=== PATIENT | female | born 1970 | race Caucasian/White ===

== ENCOUNTER 2018-01-01 16:52 | Emergency (ER) | payer OTHER ==
[~2018-01-01 16:52] MED LIST: DOC100 PO; LORA10TA2 PO; PAN40 PO; PER PO
[2018-01-01] MEDS ORDERED: LEVO-3 PO (16:58)
--- NOTE | 2018-01-01 17:29 | ER Report ---
History and Physical Time Seen By MD: 17:26 Hx. of Stated Complaint: R ELBOW PAIN AFTER FALL 1 WEEK AGO HPI/ROS CHIEF COMPLAINT: Right elbow pain HISTORY OF PRESENT ILLNESS: This is a 39-year-old female presents to the emergency department for right elbow pain. Patient states that about one week ago she fell backwards landing on her right elbow, since then she's had increased pain. Over the last 2-3 days she's had increased swelling to the right arm with pain down the forearm and decreased violent crimes detective strength. No numbness or tingling. CMS intact distal to the injury. Painful with any movement and light touch. No obvious deformities. All fevers or chest pain. REVIEW OF SYSTEMS: Respiratory: No cough, no dyspnea. Cardiovascular: No chest pain, no palpitations. Gastrointestinal: No vomiting, no abdominal pain. Musculoskeletal: As above. Allergies: Coded Allergies: diphenhydramine HCl (Verified Allergy, Severe, COMA LIKE STATE AFTER 5 MINUTES, 01/01/18) Penicillins (Verified Allergy, Intermediate, HIVES,SWELLING, 01/01/18) erythromycin base (Verified Allergy, Intermediate, SWELLING, HIVES, RASH AND ITCHING, 01/01/18) Home Meds Reported Medications Levothyroxine Sodium (LEVOTHYROXINE SODIUM) 100 Mcg Tablet, 100 MCG PO QDAY, TAB 01/01/18 Discontinued Reported Medications Docusate Sodium (Colace 100 Mg) 100 Mg Cap, 100 MG PO BID, #30 06/23/12 Oxycodone/Acetaminophen (OXYCODONE/ACETAMINOPHEN 5MG/325 MG) 5 Mg/325 Mg Tab, 1 - 2 TAB PO Q4H, #30 as needed for pain 06/23/12 Loratadine (Loratadine) 10 Mg Tablet, 10 MG PO TAKES NEEDED FOR ALLERGY SYMPTOMS 06/20/12 Oxycodone/Acetaminophen (OXYCODONE/ACETAMINOPHEN 5MG/325 MG) 5 Mg/325 Mg Tab, 1 - 2 TAB PO Q4H 06/20/12 Pantoprazole Sod (Protonix) 40 Mg Tabec, 40 MG PO QDAY 06/20/12 Past Medical/Surgical History Patient has a past medical and surgical history of GERD, arthritis, wears reading glasses, hypothyroid, cholecystectomy. Reviewed Nurses Notes: Yes Constitutional Vital Sign - Last 24 Hours 01/01/18 01/01/18 01/01/18 16:52 16:54 19:09 Temp 98.4 Pulse 96 78 Resp 18 17 B/P (MAP) 117/89 117/89 (98) 120/78 (92) Pulse Ox 94 97 O2 Delivery Room Air Room Air Physical Exam General Appearance: The patient is alert, has no immediate need for airway protection and no current signs of toxicity. Eyes: Pupils equal and round no injection. Respiratory: Chest is non tender, lungs are clear to auscultation. Cardiac: regular rate and rhythm. Gastrointestinal: Abdomen is soft and non tender, no masses, bowel sounds normal. Musculoskeletal: Neck: Neck is supple and non tender. Extremities painful supination and pronation of the right forearm, pain with palpation to the right forearm and elbow with the majority of pain on the lateral epicondyle. No obvious deformities, no crepitus or bruising identified. CMS intact distal to the injury. Skin: No rashes or lesions. DIFFERENTIAL DIAGNOSIS: After history and physical exam differential diagnosis was considered for epicondylitis, elbow fracture, subluxation, contusion and hematoma. Medical Decision Making EKG/Imaging Imaging Location: Patient: Keri Bernstein : 1970 Visit/Account:[id number] [facility] Examination: ELBOW 3 VIEWS RIGHT Comparison: None. History: Fall. Elbow pain. Findings: Degenerative spurring along the coronoid process. No fracture. Alignment is within normal limits. No joint effusion. Soft tissues are unremarkable. IMPRESSION: 1. No right elbow fracture or malalignment. 2. Degenerative spurring along the coronoid process. Report Dictated By: Marquis Marquez MD at 01/01/2018 5:54 PM Report E-Signed By: Marquis Marquez MD at 01/01/2018 5:55 PM WSN:[id number] ED Course/Re-evaluation ED Course The patient was admitted to room. A history and physical were obtained. Differential diagnoses were considered. An x-ray of the left elbow did not rev eal any acute osseous abnormalities. I did tell the patient that this could be either a very deep contusion or epicondylitis, both of which would benefit from rest, ice and elevation. Patient was placed in a sling for comfort. Patient was also instructed to follow-up with [facility] if no improvement the next 7 days. Return to the emergency department for any other concerns or worsening symptoms. Take ibuprofen or Tylenol as needed for pain. Take the arm out of sling and perform gentle range of motion exercises every 1-2 hours. Patient was in agreement with this plan of care and discharged home. Decision to Disposition Date: Jan 01, 2018 Decision to Disposition Time: 18:56 Depart Departure Latest Vital Signs Vital Signs Date Time Temp Pulse Resp B/P (MAP) Pulse Ox O2 Delivery O2 Flow Rate FiO2 01/01/18 19:09 78 17 120/78 (92) 97 Room Air 01/01/18 16:52 98.4 Impression: Primary Impression: Right elbow pain Condition: Improved Disposition: HOME OR SELF-CARE Referrals: [facility] 1 Week Patient Instructions: Arm Pain (ED) Additional Instructions: Wear the sling for comfort. If no improvement of pain in the next 2-7 days I do recommend following up with [facility]. Continue ibuprofen or Tylenol as needed for pain. Take your arm out of the sling every 1-2 hours and perform gentle range of motion exercises. Follow-up with your primary care provider as scheduled. Drink plenty of water. Plenty of rest. Return to the ER for any other concerns or worsening symptoms. HARRIETT WEBB MBA INTERN-BC Jan 01, 2018 17:29
--- NOTE | 2018-01-01 18:29 | RADIOLOGY IMAGING REPORT ---
FACILITY: [facility] PATIENT NAME: Keri Bernstein : 1970 MR: [id number] V: [id number] EXAM DATE: ORDERING PHYSICIAN: HARRIETT WEBB TECHNOLOGIST: Location: [facility] Patient: Keri Bernstein : 1970 Visit/Account:[id number] Date of Sevice: 01/01/2018 Examination: ELBOW 3 VIEWS RIGHT Comparison: None. History: Fall. Elbow pain. Findings: Degenerative spurring along the coronoid process. No fracture. Alignment is within normal l imits. No joint effusion. Soft tissues are unremarkable. IMPRESSION: 1. No right elbow fracture or malalignment. 2. Degenerative spurring along the coronoid process. Report Dictated By: Marquis Marquez MD at 01/01/2018 5:54 PM Report E-Signed By: Marquis Marquez MD at 01/01/2018 5:55 PM WSN:[id number]
[2018-01-01 19:09] VITALS: BP 120/78
== END 2018-01-01 19:10 | disposition home or self-care (01) ==
LOC: ER 17:18
DX: M25.521 Pain in right elbow (principal); W01.10XA Fall on same level from slipping, tripping and stumbling with subsequent striking against unspecified object, initial encounter
CPT/HCPCS: 99283

== ENCOUNTER → 2018-07-10 | Outpatient (CLI) | payer OTHER ==
[~2018-07-10] MED LIST changes: +LEVO-3 PO
--- NOTE | 2018-07-12 13:37 | RADIOLOGY IMAGING REPORT ---
FACILITY: [facility] PATIENT NAME: BLESSING CONTE : [id number] MR: [id number] V: [id number] EXAM DATE: [id number] ORDERING PHYSICIAN: VICENTE HASSAN TECHNOLOGIST: Deborah Kearney PROCEDURE:BILATERAL DIGITAL SCREENING MAMMOGRAM WITH CAD ASSISTED INTERPRETATION & 3D TOMOSYNTHESIS COMPARISON:Prior mammograms 12/02/16, 09/12/15, 09/04/15. INDICATIONS:screening FINDINGS: The breasts are heterogeneously dense which can obscure small masses. The parenchymal pattern has remained stable allowing for difference in mammographic technique & patient positioning. DIAGNOSTIC CATEGORY 1--NEGATIVE. RECOMMENDATIONS: ROUTINE MAMMOGRAM AND CLINICAL EVALUATION. IMPRESSION: BIRADS 1: Negative. No significant abnormality is seen. Dictated by: Ally Valdez M.D. on 07/10/2018 at 17:44 Transcribed by: BRENDA on 07/11/2018 at 8:58 Approved by: Ally Valdez M.D. on 07/12/2018 at 13:36 [facility]
== END ==
LOC: MAMO 00:43
PROVIDERS: ATTEND Obstetrics & Gynecology
DX: Z12.31 Encounter for screening mammogram for malignant neoplasm of breast (principal)
CPT/HCPCS: 77063; 77067